=== PATIENT | male | born 1980 | race Caucasian/White ===

== ENCOUNTER 2020-11-08 13:07 | Emergency (ER) | payer BC ==
[~2020-11-08] VITALS: Ht 172.7 cm; Wt 70.5 kg
[2020-11-08 13:23] VITALS: TEMP 98.3
[2020-11-08 13:42] LABS: BASO # 0.1 (0.0-0.2); BASO % 1.3 % (0.0-2.0); EOS # 0.1 (0.0-0.7); GRAN # 3.8 (1.4-6.5); GRAN % 61.7 % (42.2-75.2); HEMATOCRIT 40.8 % (42.0-52.0); LYMPH # 1.7 (1.2-3.4); LYMPH % 27.1 % (20.0-51.0); MEAN CELL VOLUME 93 fl (80.0-100.0); MEAN CORPUSCULAR HEMOGLOBIN 32 pg (27.0-31.0); MEAN CORPUSCULAR HGB CONC 34 g/dl (33.0-37.0); MEAN PLATELET VOLUME 9.9 fl (7.4-10.4); MONO # 0.5 (0.1-0.6); MONO % 8.4 % (1.7-9.3); PLATELET COUNT 259 K/mm3 (130-400); RED BLOOD COUNT 4.38 M/mm3 (4.20-5.60); REDCELL DISTRIBUTION WIDTH-CV 12.4 % (11.5-14.5)
[2020-11-08 13:48] LABS: INR 0.9 (0.8-3.0); PROTHROMBIN TIME 10.3 SECONDS (9.7-12.8)
[2020-11-08 13:56] LABS: ALANINE AMINOTRANSFERASE 22 U/L (4-49); ALBUMIN 4.1 gm/dL (3.5-5.0); ALKALINE PHOSPHATASE 62 U/L (50-136); ANION GAP 11 mmol/L (7-16); AST,SGOT 29 U/L (15-37); BILIRUBIN,TOTAL 0.2 mg/dL (0.0-1.0); BLOOD UREA NITROGEN 55 mg/dL (9-20); CALCIUM 8.8 mg/dL (8.4-10.2); CARBON DIOXIDE 19 mmol/L (22-30); CHLORIDE 111 mmol/L (98-107); CREATININE, serum 3.48 (0.66-1.25); GLUCOSE 104 mg/dL (74-106); POTASSIUM 4.2 mmol/L (3.4-5.0); SODIUM 141 mmol/L (137-145)
[2020-11-08 13:57] LABS: C-REACTIVE PROTEIN < 0.5 mg/dL (0.0-0.9)
[2020-11-08 14:06] LABS: ALCOHOL(ethanol),MEDICAL 264 mg/dL
[2020-11-08 14:08] LABS: TROPONIN-I 0.104 ng/mL (0.000-0.035)
[2020-11-08 14:22] LABS: COLLECTION METHOD CLEAN CATCH
[2020-11-08 14:37] LABS: THYROID STIMULATING HORMONE 0.197 uIU/mL (0.465-4.680)
[2020-11-08 14:45] LABS: MUCOUS Present /lpf; PH 5 (5-8); SQUAMOUS EPITHELIAL 0-2 /hpf; URINE APPEARANCE Clear; URINE BACTERIA None Seen /hpf; URINE BILIRUBIN Negative (NEGATIVE); URINE BLOOD 1+ (NEGATIVE); URINE COLOR Straw; URINE GLUCOSE Negative (NEGATIVE); URINE KETONE Negative (NEGATIVE); URINE LEUKOCYTE ESTERASE Negative (NEGATIVE); URINE NITRATE Negative (NEGATIVE); URINE PROTEIN(semi-quant) 1+ (NEGATIVE); URINE RBC None Seen /hpf; URINE UROBILINOGEN Negative (NEGATIVE)
[2020-11-08 15:01] LABS: TRICYCLIC ANTIDEPRESS URINE NEGATIVE
--- NOTE | 2020-11-08 16:25 | NUR ---
SW called to ED due to patient's son dropping patient off. Nurse was concerned about the well being of son due to him dropping patient off and being age of 14. SW met with patient to ask general questions about safetly for himself as well as his son. Patient states that he has two children and neither of his children reside with him. He stated that the son that dropped him off lives with his mother and he was at his home during the time he was to come to the ED. Patient states that his son was concerned about his health so he brought him to the ED. SW asked patient were his son was currently and patient stated that he believes that he is studying currently due to having finals next week, and states that after he studies he is going back to his mom's home due to residing there. Patient states that his childen stay with him every now and then, but primarily stays with their mom. Nothing further.
[2020-11-08] MEDS ORDERED: NORVASC 10MG10 MG PO (17:51)
[2020-11-08 18:00] VITALS: BP 177/126; PULSE 107
== END 2020-11-08 18:00 | disposition left against medical advice (07) ==
LOC: COL.ER 13:07
PROVIDERS: Emergency Medicine
DX: N17.9 Acute kidney failure, unspecified (principal); F10.129 Alcohol abuse with intoxication, unspecified; R27.8 Other lack of coordination; I16.0 Hypertensive urgency; I63.9 Cerebral infarction, unspecified; Y90.8 Blood alcohol level of 240 mg/100 ml or more
CPT/HCPCS: J7030

== ENCOUNTER → 2021-09-24 | Outpatient (CLI) | payer BC ==
[~2021-09-24] MED LIST: NORVASC 10MG10 MG PO
== END ==
LOC: COL.RAD 13:27
DX: H93.13 Tinnitus, bilateral (principal); R51.9 Headache, unspecified

== ENCOUNTER → 2021-10-04 | Outpatient (CLI) | payer BC | LOC: COL.RAD 08:10 | DX: N18.5 Chronic kidney disease, stage 5 (principal) ==

== ENCOUNTER → 2022-02-21 | Outpatient (CLI) | payer BC | LOC: COL.RAD 11:07 | DX: Z01.818 Encounter for other preprocedural examination (principal); M47.816 Spondylosis without myelopathy or radiculopathy, lumbar region ==

== ENCOUNTER → 2022-08-25 | Outpatient (CLI) | payer BC | LOC: COL.LAB 11:46 | DX: Z01.812 Encounter for preprocedural laboratory examination (principal); Z87.891 Personal history of nicotine dependence ==